=== PATIENT | female | born 1985 | race Hispanic/Latino ===

== ENCOUNTER 2017-08-17 17:01 | Emergency (ER) | payer OTHER ==
[2017-08-17 17:19] VITALS: PULSE 80; TEMP 98.2; BMI 21.9
--- NOTE | 2017-08-17 18:27 | C.PDOC ---
History Of Present Illness <Valarie Nogueira - Last Filed: 08/17/17 19:04> <Vik Mcduffie - Last Filed: 08/17/17 20:30> 32 year old female presents to the ER with a complaint of sudden onset of mid sternal chest pain and feeling SOB. 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 Patient states she had an EKG done at work that was normal, she reports the chest pain has now subsided but still feels SOB. Denies PMHx, use of control, nausea, or vomiting. (Valarie Nogueira) History Per: Patient History/Exam Limitations: no limitations Onset/Duration Of Symptoms: Sudden Onset Current Symptoms Are (Timing): Better Associated Symptoms: denies: Nausea, Diaphoresis, Syncope Modifying Factors: None Exacerbating Factors: None Alleviating Factors: None Recent travel outside of the [place]: No <Valarie Nogueira - Last Filed: 08/17/17 19:04> <Vik Mcduffie - Last Filed: 08/17/17 20:30> Time Seen by Provider: 08/17/17 17:42 Chief Complaint (Nursing): Chest Pain Past Medical History Reviewed: Historical Data, Nursing Documentation, Vital Signs - Medical History PMH: No Chronic Diseases Family History: States: Unknown Family Hx - Social History Hx Alcohol Use: No Hx Substance Use: No <Valarie Nogueira - Last Filed: 08/17/17 19:04> Vital Signs: Last Vital Signs Temp 98.2 F 08/17/17 17:16 Pulse 80 08/17/17 17:16 Resp 18 08/17/17 17:16 BP 114/73 08/17/17 17:16 Pulse Ox 100 08/17/17 19:05 Review Of Systems Constitutional: Negative for: Fever, Chills Cardiovascular: Positive for: Chest Pain Respiratory: Positive for: Shortness of Breath Gastrointestinal: Negative for: Nausea, Vomiting <Valarie Nogueira - Last Filed: 08/17/17 19:04> Physical Exam - Physical Exam Appears: Non-toxic, No Acute Distress Skin: Normal Color, Warm, Dry Head: Atraumatic, Normacephalic Eye(s): bilateral: Normal Inspection Oral Mucosa: Moist Neck: Normal, Supple Chest: Symmetrical, No Tenderness Cardiovascular: Rhythm Regular Respiratory: Normal Breath Sounds, No Rales, No Rhonchi, No Wheezing Gastrointestinal/Abdominal: Soft, No Tenderness Neurological/Psych: Oriented x3, Normal Speech <Valarie Nogueira - Last Filed: 08/17/17 19:04> ED Course And Treatment - Laboratory Results Result Diagrams: 08/17/17 18:35 08/17/17 18:35 ECG: Interpreted By Me, Viewed By Me ECG Rhythm: Sinus Rhythm ECG Interpretation: Normal Interpretation Of ECG: No acute changes. Rate From EC O2 Sat by Pulse Oximetry: 100 (room air) Pulse Ox Interpretation: Normal Progress Note: EKG, blood work, and urinalysis ordered. <Valarie Nogueira - Last Filed: 08/17/17 19:04> - Laboratory Results Result Diagrams: 08/17/17 18:35 08/17/17 18:35 Pulse Ox Interpretation: Normal Progress Note: 8:20 PM Pt is chest pain free and wants to go home. Will follow up with her PMD Reevaluation Time: 20:30 Reassessment Condition: Improved <Vik Mcduffie - Last Filed: 08/17/17 20:30> Disposition - Disposition Disposition Time: 19:05 <Valarie Nogueira - Last Filed: 08/17/17 19:04> Counseled Patient/Family Regarding: Studies Performed, Diagnosis, Need For Followup <Vik Mcduffie - Last Filed: 08/17/17 20:30> - Disposition Referrals: [facility] [Outside] [facility] [Outside] Condition: STABLE Additional Instructions: Please return if symptoms recur Instructions: Chest Pain (DC) Forms: [facility] (Taiwanese) - Clinical Impression Clinical Impression: Chest pain - 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 - Scribe Statement The provider has reviewed the documentation as recorded by the Scribe <Valarie Nogueira - Last Filed: 08/17/17 19:04> <Vik Mcduffie - Last Filed: 08/17/17 20:30> - Scribe Statement Abram Osei All medical record entries made by the Scribe were at my direction and personally dictated by me. I have reviewed the chart and agree that the record accurately reflects my personal performance of the history, physical exam, medical decision making, and the department course for this patient. I have also personally directed, reviewed, and agree with the discharge instructions and disposition. (Valarie Nogueira) Physician Patient Turnover Patient Signed Over To: Vik Mcduffie Handoff Comments: labs CXR <Valarie Nogueira - Last Filed: 08/17/17 19:04>
[2017-08-17 18:39] LABS: BASO % 0.2 % (0.0-2.0); EOS % 0.3 % (0.0-4.0); HEMOGLOBIN 13.2 g/dL (11.0-16.0); LYMPH # 1.7 K/uL (1.0-4.3); LYMPH % 23.2 % (20.0-40.0); MEAN CELL VOLUME 89.6 fL (81.0-99.0); MEAN CORPUSCULAR HEMOGLOBIN 30.2 pg (27.0-31.0); MEAN CORPUSCULAR HGB CONC 33.7 g/dL (33.0-37.0); MEAN PLATELET VOLUME 8.6 fL (7.2-11.7); MONO # 0.6 K/uL (0.0-0.8); MONO % 7.7 % (0.0-10.0); NEUT % 68.6 % (50.0-75.0); RBC 4.37 Mil/uL (3.80-5.20); WHITE BLOOD COUNT 7.4 K/uL (4.8-10.8)
[2017-08-17 18:43] LABS: HCG,QUALITATIVE URINE NEGATIVE (NEGATIVE)
[2017-08-17 18:44] LABS: SQUAMOUS EPITHIAL 2 /hpf (0-5); URINE BACTERIA RARE (<OCC); URINE BILIRUBIN NEGATIVE (NEGATIVE); URINE BLOOD NEGATIVE (NEGATIVE); URINE CLARITY Clear (Clear); URINE COLOR Straw (YELLOW); URINE GLUCOSE (UA) NORMAL (Normal); URINE LEUKOCYTE ESTERASE NEG Leu/uL (Negative); URINE NITRATE NEGATIVE (NEGATIVE); URINE PROTEIN NEGATIVE (NEGATIVE); URINE UROBILINOGEN NORMAL mg/dL (0.2-1.0)
[2017-08-17 18:47] LABS: PARTIAL THROMBOPLASTIN TIME 30 SECONDS (21-34); PROTHROMBIN TIME 10.9 SECONDS (9.7-12.2)
[2017-08-17 18:50] LABS: ALB/GLOB RATIO 1.4 (1.0-2.1); ALBUMIN 4.5 g/dL (3.5-5.0); ALT/SGPT 16 U/L (9-52); AST/SGOT 27 U/L (14-36); BLOOD UREA NITROGEN 10 mg/dL (7-17); CALCIUM 9.6 mg/dl (8.6-10.4); D DIMER < 200 ng/mlDDU (0-243); GFR AFRICAN-AMERICAN > 60; GFR NON-AFRICAN AMERICAN > 60
[2017-08-17 18:56] LABS: BARBITURATES, UR NEGATIVE (NEGATIVE); BENZODIAZEPINES, UR NEGATIVE (NEGATIVE); OPIATES, UR NEGATIVE (NEGATIVE); PHENCYCLIDINE, UR NEGATIVE (NEGATIVE)
[2017-08-17 19:05] LABS: CK-MB 0.27 ng/mL (0.0-3.38)
[2017-08-17 20:42] VITALS: BP 110/70; RESP 14; O2SAT 98
--- NOTE | 2017-08-18 08:34 | RAD ---
HISTORY: chest pain COMPARISON: None available. TECHNIQUE: Chest PA and lateral FINDINGS: LUNGS: No focal consolidation. Please note that chest x-ray has limited sensitivity for the detection of pulmonary masses. PLEURA: No significant pleural effusion identified. No definite pneumothorax . CARDIOVASCULAR: Heart size appears within normal limits. OSSEOUS STRUCTURES: No acute osseous abnormality identified. VISUALIZED UPPER ABDOMEN: Mild elevation of the right hemidiaphragm. OTHER FINDINGS: None. IMPRESSION: No focal consolidation identified. Mild elevation of the right hemidiaphragm.
--- NOTE | 2017-08-18 13:43 | CARD ---
APPROVED REPORT EKG Measurement Heart [id number] ID [id number] <Conclusion> Normal sinus rhythm Normal ECG
== END 2017-08-17 20:42 | disposition home or self-care (01) ==
LOC: C.ER 17:01
DX: R07.9 Chest pain, unspecified (principal)